=== PATIENT | female | born 1970 | race Caucasian/White ===

== ENCOUNTER 2017-02-26 07:40 | Outpatient (CLI) | payer BC, OTHER ==
[2017-02-26] VITALS (20 sets, daily range): BP systolic 104–134; BP diastolic 69–97
[~2017-02-26 07:40] MED LIST: CYCL-1 PO; DIAZ5TAB PO
== END 2017-02-26 23:59 | disposition home or self-care (01) ==
LOC: CARD DIAG 07:40
PROVIDERS: ATTEND Internal Medicine Interventional Cardiology
DX: R55 Syncope and collapse (principal)
CPT/HCPCS: 93660